=== PATIENT | female | born 1965 | race Caucasian/White ===

== ENCOUNTER → 2017-10-03 | Outpatient (CLI) | payer OTHER ==
[~2017-10-03] MED LIST: GADOBUTROL 10 MMOL/10 ML VIAL IV ONE; SUMA50TA3 PO
--- NOTE | 2017-10-03 14:28 | KCIC ---
MRI of the Brain without and with Contrast 10/03/2017 Clinical History: Migraine headaches and dizziness since late August. Technique: Unenhanced T1-weighted and FLAIR sagittal and axial and gradient echo, T2-weighted and diffusion-weighted axial images of the brain were obtained. After the intravenous administration of 8 cc of Gadavist, enhanced T1-weighted axial and coronal images of the brain were obtained. Findings: Comparison study is dated 02/05/2013. This was performed at [facility] in [place], [place]. The ventricles and sulci are within normal limits in size and configuration. Patchy and multiple small focal areas of abnormally increased signal intensity are seen within the periventricular and subcortical white matter of both cerebral hemispheres on the FLAIR and T2-weighted images. Their MRI appearance is nonspecific. They are felt to most likely represent areas of small vessel ischemic disease. Alternatively they can be seen in patients with a history of migraine headaches. They have not significantly changed. No acute parenchymal abnormality is seen. No abnormal area of contrast enhancement is seen. No extra-axial fluid collection is noted. There is no MRI evidence of acute ischemia/infarction. The paranasal sinuses are essentially clear. Normal flow voids are seen within the major vascular structures surrounding the brain parenchyma. Impression: No acute parenchymal abnormality is seen. Electronically signed by: Leland Hernandez MD (10/03/2017 2:24 PM) [id number]
--- NOTE | 2017-10-03 14:36 | KCIC ---
MRA of the brain without contrast 10/03/2017 Clinical History: Migraine headaches and dizziness since late August of this year. Technique: Using 3-D time of flight techniques, a MRA of the major arterial structures surrounding the [place] was performed. Findings: MRA images of the anterior and posterior circulations are within normal limits. The A1 segment of the right anterior cerebral artery and the P1 segment of the right posterior cerebral artery are hypoplastic. This is a normal variation. No area of stenosis or occlusion is seen. No intracranial aneurysm is seen. Impression: Negative study. Electronically signed by: Leland Hernandez MD (10/03/2017 2:33 PM) [id number]
--- NOTE | 2017-10-03 14:55 | KCIC ---
MRA of the Neck without and with Contrast 10/03/2017 Clinical History: Migraine headaches and dizziness since late August of this year. Technique: Using 2D time of flight techniques, a MRA of the carotid and vertebral arterial structures within the neck was performed. After the dynamic intravenous administration of 8 cc of Gadavist, enhanced, 3D time of flight coronal images of the neck and upper chest were obtained. 3D MIP images were generated in multiple projections for a contrast enhanced MRA. Findings: The origins of the brachiocephalic, left common carotid and left subclavian arteries from the thoracic aortic arch are within normal limits. The origin of the right common carotid and both vertebral arteries are within normal limits. The common carotid arteries, carotid bifurcations, and internal carotid arteries are within normal limits. No hemodynamically significant stenosis or area of occlusion is seen. The vertebral arteries are codominant. Both vertebral arteries demonstrate normal antegrade flow. No area stenosis or occlusion is seen. Impression: Negative study. Stenosis calculation for MRA are based on measurement of the distal internal carotid artery diameter in accordance with the NASCET methodology. Electronically signed by: Leland Hernandez MD (10/03/2017 2:52 PM) [id number]
== END | disposition home or self-care (01) ==
LOC: KCIC MRI 10:51
PROVIDERS: ATTEND Family Medicine
DX: G43.909 Migraine, unspecified, not intractable, without status migrainosus (principal); R42 Dizziness and giddiness
CPT/HCPCS: 70544; 70549; 70553; A9585

== ENCOUNTER → 2018-12-06 | Outpatient (CLI) | payer OTHER ==
[~2018-12-06] MED LIST changes: -GADOBUTROL 10 MMOL/10 ML VIAL IV ONE
--- NOTE | 2018-12-06 14:14 | KCIC ---
PQRS Compliance statement: One or more of the following individualized dose reduction techniques were utilized for this examination: 1. Automated exposure control. 2. Adjustment of the mA and/or kV according to patient size. 3. Use of iterative reconstruction technique. Indication:Acute recurrent sinusitis. TECHNIQUE: CT of the maxillofacial bones without IV contrast multiplanar reformats. COMPARISON: None FINDINGS: The paranasal sinuses and mastoid air cells are well-aerated. No fluid, mucoperiosteal thickening, mucous retention cyst or polyp is seen in the paranasal sinuses. The lenses, globes, extraocular muscles and intraorbital fat are within normal limits. Lateral temporomandibular joints are within normal limits. The bilateral external auditory canals and inner ear cavity are within normal limits. The noncontrast appearance of the facial soft tissues within normal limits. IMPRESSION: No imaging evidence of acute or chronic sinusitis. Electronically signed by: Frandy Field DO (12/06/2018 2:09 PM) [id number]
== END | disposition home or self-care (01) ==
LOC: KCIC CT 13:41
PROVIDERS: ATTEND Otolaryngology
DX: J01.91 Acute recurrent sinusitis, unspecified (principal)
CPT/HCPCS: 70486